=== PATIENT | male | born 1990 | race African-American/Black ===

== ENCOUNTER 2020-04-07 18:23 | Emergency (ER) | payer OTHER ==
[~2020-04-07] VITALS: Ht 172.7 cm; Wt 72.6 kg
[2020-04-07 18:41] VITALS: BP 122/73
== END 2020-04-07 19:33 | disposition home or self-care (01) ==
LOC: ER 18:23
DX: R06.6 Hiccough (principal); F17.210 Nicotine dependence, cigarettes, uncomplicated